=== PATIENT | female | born 1935 ===

== ENCOUNTER 2018-01-26 12:24 | Emergency (ER) | payer OTHER, MEDICARE ==
[~2018-01-26] VITALS: Ht 162.6 cm; Wt 88.5 kg
[2018-01-26 14:17] LABS: ABSOLUTE BASOPHIL COUNT 0 /CUMM (0.0-0.2); ABSOLUTE EOSINOPHIL COUNT 0.2 /CUMM (0.0-0.7); ABSOLUTE LYMPH COUNT 2.3 /CUMM (1.2-3.4); ABSOLUTE MONOCYTE COUNT 0.8 /CUMM (0.10-0.60); BASOPHIL % 0.5 % (0.0-2.0); EOSINOPHIL % 2.3 % (0-5); GRANULOCYTE % 67.5 % (42.2-75.2); HEMATOCRIT 33.7 % (37-47); MEAN CORPUSCULAR HGB 28.4 PG (27.0-31.0); MEAN CORPUSCULAR HGB CONC 32.8 G/DL (33.0-37.0); MEAN CORPUSCULAR VOLUME 86.4 FL (81.0-99.0); MEAN PLATELET VOLUME 10.3 FL (7.4-10.4); PLATELET COUNT 221 /CUMM (130-400); RBC DISTRIBUTION WIDTH 13.8 % (11.5-14.5); WHITE BLOOD CELL COUNT 10.4 /CUMM (4.8-10.8)
[2018-01-26] MEDS ORDERED: AUGMENTIN 875-1 EACH PO (15:58)
--- NOTE | 2018-01-26 15:58 | ED GENERAL ADULT ---
History of Present Illness General Chief Complaint: Sore Throat, Dental Pain Stated Complaint: DENTAL PAIN, LEFT SIDE OF FACE SWOLLEN Source: patient Exam Limitations: no limitations Vital Signs & Intake/Output Vital Signs & Intake/Output Vital Signs Date Time Temp Pulse Resp B/P B/P Pulse O2 O2 Flow FiO2 Mean Ox Delivery Rate 01/26 1330 97.3 84 18 141/78 94 Room Air Allergies Coded Allergies: Sulfa (Sulfonamide Antibiotics) (UNKNOWN 01/26/18) Reconcile Medications Amoxicillin/Potassium Clav (Augmentin 875-125 Tablet) 875 MG-125 MG TABLET 1 TAB PO BID dental infection Triage Note: PT SENT BY HER DENTIST FOR IV ABT, WAS STARTED ON PO ABT YESTERDAY BUT SWELLING INCREASES , PT STATES THAT SHE NEEDS A ROOT CANAL Triage Nurses Notes Reviewed? yes Onset: Gradual Duration: day(s): Timing: constant HPI: 82-year-old female with a history of hypertension, hyperlipidemia, diabetes presenting with dental pain over the past several days. Patient states that she has pain to her left front tooth and needs a root canal. Is currently in the process of being referred to an oral surgeon by her primary dentist. States that her primary dentist started her on azithromycin yesterday, has taken 2 doses. This morning woke up with mild left-sided facial swelling. Was sent into the emergency department for IV antibiotics by her dentist. She denies fevers, nausea, vomiting, dental drainage. (Charlotte Rizvi) Past History Travel History Traveled to [place] past 21 day No Medical History Any Pertinent Medical History? see below for history Neurological: NONE EENT: NONE Cardiovascular: hypertension, hyperlipidemia Respiratory: NONE Gastrointestinal: NONE Hepatic: NONE Renal: NONE Musculoskeletal: NONE Psychiatric: NONE Endocrine: diabetes Blood Disorders: NONE Cancer(s): NONE WHEEL GRINDER/Reproductive: NONE Surgical History Surgical History: non-contributory Psychosocial History What is your primary language Vietnamese Tobacco Use: Never used ETOH Use: denies use Illicit Drug Use: denies illicit drug use Family History Hx Contributory? No (Charlotte Rizvi) Review of Systems Review of Systems Constitutional: Reports: no symptoms. EENTM: Reports: see HPI. Respiratory: Reports: no symptoms. Cardiovascular: Reports: no symptoms. GI: Reports: no symptoms. Genitourinary: Reports: no symptoms. Musculoskeletal: Reports: no symptoms. Skin: Reports: no symptoms. Neurological/Psychological: Reports: no symptoms. Hematologic/Endocrine: Reports: no symptoms. Immunologic/Allergic: Reports: no symptoms. All Other Systems: Reviewed and Negative (Charlotte Rizvi) Physical Exam Physical Exam General Appearance: well developed/nourished, no apparent distress, alert, awake Comments: Gen.: Well-nourished, well-developed, no acute distress. Head: Normocephalic, atraumatic. Eyes: Normal inspection bilaterally Ears: Normal inspection bilaterally Nose: Normal inspection Oral cavity: Left front upper tooth is tender with tooth rest, no gingivitis, no gingival abscess, no purulent drainage Face: Mild left-sided facial swelling, tenderness to palpation over the left maxillary sinus Neck: Normal inspection Lungs: clear to auscultation bilaterally, normnal breath sounds Heart: regular rate and rhythm Abdomen: soft and non-tender Extremities: Normal inspection Neurologic: alert and oriented x3, steady gait Skin: warm and dry Psychiatric: Normal mood and affect, no apparent delusions or hallucinations, behavior appropriate Core Measures ACS in differential dx? No CVA/TIA Diagnosis: No Sepsis Present: No Sepsis Focused Exam Completed? No (Charlotte Rizvi) Progress Differential Diagnoses I considered the following diagnoses in my evaluation of the patient: [Apical abscess versus gingival abscess versus dental caries versus sinusitis versus facial cellulitis, low concern for Rob's angina] Initial ED EKG: none (Charlotte Rizvi) Plan of Care: Orders Procedure Date/time Status BLOOD CULTURE 01/26 1323 Active LACTIC ACID 01/26 1323 Complete COMPREHENSIVE METABOLIC PANEL 01/26 1323 Complete CBC WITHOUT DIFFERENTIAL 01/26 1323 Complete Laboratory Tests 01/26/18 1400: Anion Gap 9, Estimated GFR 60, BUN/Creatinine Ratio 24.4, Glucose 98, Lactic Acid 0.9, Calcium 10.2, Total Bilirubin 0.6, AST 22, ALT 31, Alkaline Phosphatase 91, Total Protein 6.4, Albumin 3.7, Globulin 2.7, Albumin/Globulin Ratio 1.4, CBC w Diff NO MAN DIFF REQ, RBC 3.90 L, MCV 86.4, MCH 28.4, MCHC 32.8 L, RDW 13.8, MPV 10.3, Gran % 67.5, Lymphocytes % 22.1, Monocytes % 7.6, Eosinophils % 2.3, Basophils % 0.5, Absolute Granulocytes 7.0 H, Absolute Lymphocytes 2.3, Absolute Monocytes 0.8 H, Absolute Eosinophils 0.2, Absolute Basophils 0 Microbiology 01/26 1526 BLOOD: Blood Culture - RECD 01/26 1400 BLOOD: Blood Culture - RECD Labs unremarkable including normal WBC and lactic acid Patient given IV dose of Unasyn She is well-appearing, normal phonation, tolerating secretions, no neck edema, normal vital signs, and has been afebrile. Therefore no indication for admission at this time. She will be discharged home with Rx Augmentin for better coverage of oral elena and questionable cellulitis from possible sinus infection. Patient seen and evaluated by the ED attending. She will follow-up with the oral surgeon for reevaluation and her PMD. Given strict return precautions. (Charlotte Rizvi) (Astrid KNAPP,Elijah Fuller) Departure Departure Disposition: HOME OR SELF CARE Condition: Stable Clinical Impression Primary Impression: Facial swelling Secondary Impressions: Dental infection Referrals: Unknown (PCP/Family) Additional Instructions: Stop taking azithromycin and begin taking Augmentin. Follow-up with the oral surgeon for reevaluation. Return to the emergency department for any new or worsening symptoms. Departure Forms: Customer Survey General Discharge Information Prescriptions: Current Visit Scripts Amoxicillin/Potassium Clav (Augmentin 875-125 Tablet) 1 TAB PO BID #20 TAB (Charlotte Rizvi) PA/STAMP MOUNTER Co-Sign Statement Statement: ED Attending supervision documentation- [X] I saw and evaluated the patient. I have also reviewed all the pertinent lab results and diagnostic results. I agree with the findings and the plan of care as documented in the PA's/STAMP MOUNTER's documentation. [] I have reviewed the ED Record and agree with the PA's/STAMP MOUNTER's documentation. [] Additions or exceptions (if any) to the PAs/STAMP MOUNTER's note and plan are summarized below: [] (Astrid KNAPP,Elijah Fuller) Critical Care Note Critical Care Note Critical Care Time: non-applicable (Charlotte Rizvi)
[2018-01-26 16:12] VITALS: BP 136/85
== END 2018-01-26 16:12 ==
LOC: ERH 12:24
PROVIDERS: Physician Assistant
DX: K04.7 Periapical abscess without sinus (principal); R22.0 Localized swelling, mass and lump, head
CPT/HCPCS: 87040; 96365